=== PATIENT | female | born 1985 | race Caucasian/White ===

== ENCOUNTER 2018-09-10 09:04 | Emergency (ER) | payer BC ==
[~2018-09-10] VITALS: Ht 162.6 cm; Wt 70.0 kg
[2018-09-10 09:06] VITALS: BP 137/84; PULSE 84; RESP 16; Ht 162.6 cm; Wt 70.0 kg
[2018-09-10] MEDS ORDERED: ACET325T33 PO (11:11)
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
== END 2018-09-10 12:06 | disposition home or self-care (01) ==
LOC: E/R 09:04 → FTE 12:06
DX: O99.89 Other specified diseases and conditions complicating pregnancy, childbirth and the puerperium (principal); M54.2 Cervicalgia; M25.571 Pain in right ankle and joints of right foot; Z3A.11 11 weeks gestation of pregnancy
CPT/HCPCS: 72040; 76801